=== PATIENT | female | born 1995 | race Caucasian/White ===

== ENCOUNTER 2016-08-28 14:06 | Emergency (ER) | payer OTHER ==
[~2016-08-28] VITALS: Ht 162.6 cm; Wt 72.0 kg
[2016-08-28 14:10] VITALS: TEMP 36.6; Ht 162.6 cm; Wt 72.0 kg
[2016-08-28] MEDS ORDERED: BCPILLS PO (14:43)
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
[2016-08-28] MEDS ORDERED: OPTIRAY 320 IV PRN (15:00)
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
[2016-08-28] MEDS ORDERED: SODIUM CHLORIDE 0.9% 1000ML 1,000 ML IV ONE (15:50)
[2016-08-28] MEDS ORDERED: SODIUM CHLORIDE 0.9% 1000ML 1,000 ML IV STA (15:50)
[2016-08-28 16:37] LABS: ISTAT CREATININE 0.6 mg/dl; ISTAT IONIZED CALCIUM 1.17 mmol/l
[2016-08-28] MEDS ORDERED: OXYC1TAB3 PO (16:42)
[2016-08-28] MEDS ORDERED: OXYCODONE IR HOME PACK PO ONE (17:15)
[2016-08-28 18:43] VITALS: BP 116/74; PULSE 106; O2SAT 99
== END 2016-08-28 18:45 | disposition home or self-care (01) ==
LOC: C.EDC 14:09
DX: S32.464 Nondisplaced associated transverse-posterior fracture of right acetabulum (principal); V43.52XA Car driver injured in collision with other type car in traffic accident, initial encounter; F17.200 Nicotine dependence, unspecified, uncomplicated